=== PATIENT | male | born 1970 | race Caucasian/White ===

== ENCOUNTER → 2025-01-03 12:19 | Outpatient (BNVA) | payer BC, SELFPAY | PROVIDERS: PCP Family Medicine; Visit Provider Family Medicine | DX: E11.9 Type 2 diabetes mellitus without complications (principal) | CPT/HCPCS: 80053; 80061; 82043; 83036; 85025; G0103 ==

== ENCOUNTER 2025-01-14 08:57 | Outpatient (CLI) | payer BC, MEDICAID, SELFPAY ==
--- NOTE | 2025-01-14 09:00 | CT_ITS ---
WS: [id number] LDCT LUNG CANCER SCREENING HISTORY: screening TECHNIQUE: Axial imaging performed from the apices to 1 cm below the costophrenic angles. Coronal and sagittal reformats are submitted with axial MIP series. All CT scans at [facility] use at least one of these dose optimization techniques: automated exposure control; mA and/or kV adjustment per patient size (includes targeted exams where dose is matched to clinical indication); or iterative reconstruction. DLP: 128.10 mGy.cm DIvol: Mean CTDIvol: 2.70 (mGy) COMPARISON: None available. Diagnostic quality: Satisfactory Lungs: No pulmonary mass or nodule. No pneumonia. No endobronchial lesions. Heart: Normal size heart with no pericardial effusion.. Other findings: No adenopathy. Normal aorta. No adrenal mass. CT/CT lung screening 72201 IMPRESSION: LUNG-RADS: 1-Negative FOLLOW UP: 12 Month: Continue annual screening with LDCT OTHER FINDINGS (S MODIFIER): None.
== END 2025-01-14 08:58 | disposition home or self-care (01) ==
LOC: RAD 08:59
PROVIDERS: PCP Family Medicine; Visit Provider Family Medicine
DX: Z12.2 Encounter for screening for malignant neoplasm of respiratory organs (principal); F17.219 Nicotine dependence, cigarettes, with unspecified nicotine-induced disorders
CPT/HCPCS: 71271

== ENCOUNTER 2025-02-21 10:03 | Outpatient (CLI) | payer BC, MEDICAID, SELFPAY ==
--- NOTE | 2025-02-21 10:15 | USCV_ITS ---
Pa Orta Age: 54 Gender: M : 1970 Exam Date: 02/21/2025 10:19 Ordering Phys: Kathya Bae DO Technologist: SARA Exam Location: [facility] [place] Indication: AAA HISTORY: Diameter (cm) AP x Transverse x Length Velocity (cm/s) Waveform Prox Aorta: 2.70 x 2.80 x 99.50 Triphasic Mid Aorta: 2.40 x 1.90 x 84.30 Triphasic Distal Aorta: 1.80 x 1.50 x 62.50 Triphasic Right Iliac Prox: 1.14 x 1.12 x 132.00 Triphasic Left Iliac Prox: 1.25 x 1.22 x 91.70 Triphasic Stent Prox Landing x x Aneurysmal Sac Max x x Lt Lat Sac Dim Rt Lat Sac Dim Stent Dist Landing x x Right Iliac Stent x x Left Iliac Stent x x Right Renal Art Left Renal Art FINDINGS: CONCLUSIONS Slightly aneurysmal Proximal aorta measuring 2.7 x 2.8cm AP x trans Normal caliber distal abdominal aorta Normal iliac arteries Mild atheromatous disease Renaldo Moya MD (Electronically Signed) Final Date: 21 February 2025 15:15 S
== END 2025-02-21 10:04 | disposition home or self-care (01) ==
PROVIDERS: PCP Family Medicine; Visit Provider Family Medicine
DX: I71.40 Abdominal aortic aneurysm, without rupture, unspecified (principal); I70.0 Atherosclerosis of aorta
CPT/HCPCS: 93978

== ENCOUNTER → 2025-05-09 09:05 | Outpatient (BNVA) | payer BC, MEDICAID, SELFPAY | PROVIDERS: PCP Family Medicine; Visit Provider Family Medicine | DX: E11.9 Type 2 diabetes mellitus without complications (principal) | CPT/HCPCS: 80053; 83036 ==